=== PATIENT | male | born 1945 | race Caucasian/White ===

== ENCOUNTER → 2023-11-24 12:47 | Outpatient (REF) | payer OTHER, SELFPAY | LOC: PAVMRI 12:47 | PROVIDERS: ATTENDING PHYSICIAN Otolaryngology; FAMILY PHYSICIAN Internal Medicine | DX: H93.2 Other abnormal auditory perceptions (principal) | CPT/HCPCS: 70553; A9575 ==

== ENCOUNTER → 2025-02-14 10:08 | Outpatient (REF) | payer OTHER, SELFPAY | LOC: RAD 10:08 | PROVIDERS: ATTENDING PHYSICIAN Internal Medicine | DX: M25.552 Pain in left hip (principal) | CPT/HCPCS: 73502 ==